=== PATIENT | female | born 1985 | race Caucasian/White ===

== ENCOUNTER 2017-04-11 12:53 | Inpatient (IN) | payer OTHER ==
[~2017-04-11] VITALS: Ht 147.3 cm; Wt 84.5 kg
[2017-04-11] VITALS (7 sets, daily range): BP systolic 95–126; BP diastolic 51–57
[~2017-04-11 12:53] MED LIST: MACROBID100 MG PO; NOHOMEMEDS; PRENATA CHEWAB1 EACH PO; ZOFRAN ODT4 MG PO
[2017-04-11 15:14] LABS: EOSINOPHIL (%) 0.1 % (0-5); HEMATOCRIT 39.7 % (36.0-46.0); IMMATURE GRANULOCYTE (%) 0.6 % (0.0-0.7); IMMATURE GRANULOCYTE COUNT 0.1 K/uL; INSTRUMENT ABS NEUTROPHIL CT 9.8 K/uL; LYMPHOCYTE COUNT 1.4 K/uL (1.0-2.8); MCH 24.6 PG (29.0-34.0); MCV 76.8 FL (83-99); MEAN PLAT.VOLUME 9.8 uM^3 (9.5-12.4); MONOCYTE (%) 4.7 % (3-12); MONOCYTE COUNT 0.6 K/uL (0-0.8); NEUTROPHIL COUNT 9.8 K/uL (1.8-6.4); PLATELET COUNT 319 K/uL (156-360); RBC DIS.WIDTH-CV 19.3 % (11.8-14.6); RBC DIS.WIDTH-SD 50.5 % (39-53); RED BLOOD COUNT 5.17 M/uL (3.80-5.20); WHITE BLOOD COUNT 11.8 K/uL (4.1-10.2)
[2017-04-11 15:15] LABS: AMPHETAMINES QUANT VALUE 0 NG/ML; BARBITUATES QUANT VALUE 0 NG/ML; BENZODIAZEPINES QUANT VALUE 0 NG/ML; BENZODIAZEPINES, URINE SCREEN Negative (200 ng/mL); MARIJUANA QUANT VALUE 0 NG/ML; OPIATES QUANTITATIVE VALUE 0 NG/ML; PHENCYCLIDINE QUANT VALUE 0 NG/ML
[2017-04-12 07:26] LABS: EOSINOPHIL (%) 1.1 % (0-5); EOSINOPHIL COUNT 0.1 K/uL (0-0.3); HEMATOCRIT 34.9 % (36.0-46.0); IMMATURE GRANULOCYTE (%) 0.3 % (0.0-0.7); INSTRUMENT ABS NEUTROPHIL CT 6.7 K/uL; LYMPHOCYTE COUNT 2.2 K/uL (1.0-2.8); MCH 24.3 PG (29.0-34.0); MCHC 30.9 G/DL (30.0-36.0); MCV 78.6 FL (83-99); MEAN PLAT.VOLUME 9.9 uM^3 (9.5-12.4); MONOCYTE (%) 7.3 % (3-12); MONOCYTE COUNT 0.7 K/uL (0-0.8); NEUTROPHIL (%) 68.6 % (45-76); NEUTROPHIL COUNT 6.7 K/uL (1.8-6.4); PLATELET COUNT 278 K/uL (156-360); RBC DIS.WIDTH-CV 18.8 % (11.8-14.6); RBC DIS.WIDTH-SD 52.3 % (39-53); RED BLOOD COUNT 4.44 M/uL (3.80-5.20); WHITE BLOOD COUNT 9.7 K/uL (4.1-10.2)
[2017-04-13 07:24] VITALS: BP 93/52
[2017-04-13] MEDS ORDERED: IBUPROFEN800 MG PO (08:21)
== END 2017-04-13 16:20 | disposition home or self-care (01) | DRG 775 ==
LOC: LDRP-OP → 2WEST 12:54 → LDRP-OP 05-14 16:49
PROVIDERS: Advanced Practice Midwife
PROC: 10907ZC Drainage of Amniotic Fluid, Therapeutic from Products of Conception, Via Natural or Artificial Opening (ICD-10-PCS; principal; 2017-04-11)
PROC: 10E0XZZ Delivery of Products of Conception, External Approach (ICD-10-PCS; 2017-04-11)
DX: O99.214 Obesity complicating childbirth (principal); E66.9 Obesity, unspecified; Z68.38 Body mass index [BMI] 38.0-38.9, adult; O99.334 Smoking (tobacco) complicating childbirth; F17.210 Nicotine dependence, cigarettes, uncomplicated; O99.344 Other mental disorders complicating childbirth; Z3A.39 39 weeks gestation of pregnancy; Z37.0 Single live birth; O09.43 Supervision of pregnancy with grand multiparity, third trimester; F31.9 Bipolar disorder, unspecified
CPT/HCPCS: 80306 90; 85025; 86900; 86901; 86920; J7120

== ENCOUNTER 2017-06-24 14:27 | Emergency (ER) | payer OTHER ==
[~2017-06-24] VITALS: Ht 139.7 cm; Wt 79.4 kg
[~2017-06-24 14:27] MED LIST changes: +IBUPROFEN800 MG PO
[2017-06-24 15:02] LABS: ADD MIUA? NO; BILIRUBIN NEGATIVE; BLOOD NEGATIVE; COLOR YELLOW ((YELLOW)); GLUCOSE (STRIP) NEGATIVE; KETONES NEGATIVE; LEUKOCYTES NEGATIVE; NITRITE NEGATIVE; PROTEIN (STRIP) NEGATIVE; UCUL ADDED? NO
[2017-06-24 16:55] LABS: HEMATOCRIT 39.7 % (36.0-46.0); MCH 25.8 PG (29.0-34.0); MCHC 32.7 G/DL (30.0-36.0); MCV 78.9 FL (83-99); PLATELET COUNT 311 K/uL (156-360); RBC DIS.WIDTH-CV 15.7 % (11.8-14.6); RBC DIS.WIDTH-SD 44.6 % (39-53); RED BLOOD COUNT 5.03 M/uL (3.80-5.20); WHITE BLOOD COUNT 6.8 K/uL (4.1-10.2)
[2017-06-24 17:03] LABS: CHLORIDE 107 mEq/L (99-109); SODIUM 139 mEq/L (136-147)
[2017-06-24 17:05] LABS: GLUCOSE 95 mg/dL (70-99)
[2017-06-24 17:06] LABS: ANION GAP 7 MEQ/L (2-14)
[2017-06-24 17:07] LABS: TOTAL BILIRUBIN 0.3 mg/dL (0.0-1.0)
[2017-06-24 17:08] LABS: ALKALINE PHOSPHATASE 99 IU/L (3-129)
[2017-06-24 17:09] LABS: GFR ESTIMATE (CALCULATED) > 59 mL/min/
[2017-06-24 17:10] LABS: UREA NITROGEN (BUN) 12 mg/dL (9-23)
[2017-06-24 17:12] LABS: LIPASE 96 U/L (1.0-51.0)
[2017-06-24 17:20] LABS: QUANTITATIVE HCG < 4.0 MIU/ML
[2017-06-24] MEDS ORDERED: ULTRAM50 MG PO (17:36)
[2017-06-24 17:41] VITALS: BP 106/66
== END 2017-06-24 17:46 | disposition home or self-care (01) ==
LOC: EME 14:27
PROVIDERS: Physician Assistant
DX: R10.9 Unspecified abdominal pain (principal); R30.0 Dysuria; F17.200 Nicotine dependence, unspecified, uncomplicated
CPT/HCPCS: 80053; 81003; 83690; 84702; 85027; 99281; 99283

== ENCOUNTER 2018-01-19 07:31 | Day surgery (SDC) | payer OTHER ==
[~2018-01-19] VITALS: Ht 149.9 cm; Wt 86.2 kg
[~2018-01-19 07:31] MED LIST changes: +NON-ASPIRIN PA500 M1 PO; +ULTRAM50 MG PO
[2018-01-19] MEDS ORDERED: ENDOCET 5-3251 EACH PO (10:09)
[2018-01-19 11:35] VITALS: BP 91/68
[2018-01-19 12:50] VITALS: BP 115/70
== END 2018-01-19 13:15 | disposition home or self-care (01) ==
LOC: SDC 07:31
PROC: 0UBC7ZX Excision of Cervix, Via Natural or Artificial Opening, Diagnostic (ICD-10-PCS; principal; 2018-01-19)
DX: D06.9 Carcinoma in situ of cervix, unspecified (principal); K21.9 Gastro-esophageal reflux disease without esophagitis; F41.9 Anxiety disorder, unspecified; F12.90 Cannabis use, unspecified, uncomplicated; F17.210 Nicotine dependence, cigarettes, uncomplicated
CPT/HCPCS: 88305; 88307; J0131; J1100; J1885; J2250; J2405; J3010

== ENCOUNTER 2018-01-29 22:39 | Emergency (ER) | payer OTHER ==
[~2018-01-29] VITALS: Ht 149.9 cm; Wt 87.8 kg
[~2018-01-29 22:39] MED LIST changes: +ENDOCET 5-3251 EACH PO
[2018-01-29] MEDS ORDERED: ULTRAM50 MG PO (23:18)
[2018-01-29] MEDS ORDERED: PEN-VEE K,VEET500 MG PO (23:18)
[2018-01-29 23:27] VITALS: BP 117/77
== END 2018-01-29 23:28 | disposition home or self-care (01) ==
LOC: EME 22:39
DX: K08.89 Other specified disorders of teeth and supporting structures (principal); K05.10 Chronic gingivitis, plaque induced; F17.200 Nicotine dependence, unspecified, uncomplicated
CPT/HCPCS: 99281; 99284